=== PATIENT | female | born 1985 | race Caucasian/White ===

== ENCOUNTER 2024-09-25 14:47 | Outpatient (CLI) | payer OTHER, SELFPAY ==
[2024-09-26 00:03] LABS: PCR FLU A Negative PCR FLU A (Negative); PCR FLU B Negative PCR FLU B (Negative); PCR RSV Negative PCR RSV (Negative); SARS PCR* Negative SARS-CoV-2 (Negative)
== END 2024-09-25 14:48 | disposition home or self-care (01) ==
LOC: KYNREF 14:48
PROVIDERS: PCP Internal Medicine; Visit Provider Nurse Practitioner Family
DX: R05.9 Cough, unspecified (principal)
CPT/HCPCS: 87631